=== PATIENT | female | born 1990 | race Caucasian/White ===

== ENCOUNTER 2024-08-13 15:58 | Emergency (ER) | payer BC ==
--- NOTE | 2024-08-13 18:45 | ER ---
Nurse's Notes [facility] Name: Meghan Mitchell Age: 33 yrs Sex: Female : 1990 Arrival Date: 08/13/2024 Time: 15:58 Bed IW9 Private MD: Diagnosis: Presentation: 08/13 16:04 Chief complaint: Patient states: Back pain X 5 days. Reports muscle spasms so bad "it ld1 took me to the floor it hurt so bad.". Coronavirus screen: At this time, the client does not indicate any symptoms associated with coronavirus-19. Ebola Screen: No symptoms or risks identified at this time. Initial Sepsis Screen: Does the patient meet any 2 criteria? No. Patient's initial sepsis screen is negative. Does the patient have a suspected source of infection? No. Patient's initial sepsis screen is negative. Risk Assessment: Do you want to hurt yourself or someone else? Patient reports no desire to harm self or others. Onset of symptoms was August 13, 2024 at 16:05. 16:04 Method Of Arrival: Ambulatory ld1 16:04 Acuity: YEYO 3 ld1 Triage Assessment: 16:05 General: Appears in no apparent distress. uncomfortable, Behavior is calm, cooperative, ld1 appropriate for age. Pain: Complains of pain in low back area Pain does not radiate. Pain currently is 2 out of 10 on a pain scale. at worst was 7 out of 10 on a pain scale. Quality of pain is described as throbbing, Pain began suddenly, Is continuous. EENT: No signs and/or symptoms were reported regarding the EENT system. Neuro: Level of Consciousness is awake, alert, obeys commands, Oriented to person, place, time, situation. Cardiovascular: Capillary refill < 3 seconds Patient's skin is warm and dry. Respiratory: Airway is patent Respiratory effort is even, unlabored. GI: Abdomen is round non-distended. : No signs and/or symptoms were reported regarding the genitourinary system. Derm: No signs and/or symptoms reported regarding the dermatologic system. Musculoskeletal: Range of motion: intact in all extremities. Historical: - Allergies: 16:05 No Known Allergies; ld1 - Home Meds: 16:05 None [Active]; ld1 - PMHx: 16:05 None; ld1 - PSHx: 16:08 None; ld1 - Immunization history:: Adult Immunizations up to date. - Infectious Disease History:: Denies. - Social history:: Smoking status: Patient denies any tobacco usage or history of. Assessment: 18:30 Reassessment: called from lobby, patient was not located and there was no answer. ap3 provider notified. Vital Signs: 16:04 BP 133 / 85; Pulse 80; Resp 18; Temp 97.8(TE); Pulse Ox 100% on R/A; Weight 76.2 kg; ld1 Height 5 ft. 4 in. ; Pain 2/10; 16:04 Body Mass Index 28.84 (76.20 kg, 162.56 cm) ld1 16:04 Pain Scale: Adult ld1 ED Course: 16:01 Patient arrived in ED. im 16:02 Phong Valdivia, [facility] 16:02 Abiel Carmona MD is Attending Physician. dr5 16:05 Triage completed. ld1 16:05 Arm band placed on right wrist. ld1 16:22 Radiology exam delayed due to test not completed at this time. jk Administered Medications: No medications were administered Outcome: 18:45 Patient left the ED. ap3 Signatures: Julee Napoles RN RN ap3 Fareed Schneider Lauren RN RN ld1 Carrie Mendes im Phong Valdivia, DRAGLINE OPERATOR-C DRAGLINE OPERATOR-Cdr5 Corrections: (The following items were deleted from the chart) 16:08 16:05 PSHx: section; ld1 ld1
--- NOTE | 2024-08-13 18:45 | EDPHYS ---
Physician Documentation [facility] Name: Meghan Mitchell Age: 33 yrs Sex: Female : 1990 Arrival Date: 08/13/2024 Time: 15:58 Bed IW9 Private MD: ISABELLE Physician Abiel Carmona HPI: 08/13 18:37 This 33 yrs old Female presents to ER via Ambulatory with complaints of Back dr5 Pain. 18:37 The patient presents with pain that is chronic, with no known mechanism of injury. dr5 Onset: The symptoms/episode began/occurred 5 day(s) ago. Patient is a 33-year-old female with no past medical history coming in with intermittent back spasms for the past 5 days. Patient reports that she has been taking NSAIDs with mild relief. Patient reports that pain comes and goes. Patient denies chest pain, abdominal pain, nausea, vomiting, diarrhea, or dysuria. Patient denies any back pain red flags such as numbness / tingling to lower extremities, magali-rectal numbness, fever, IV drug use, or hx of cancer.. Historical: - Allergies: 16:05 No Known Allergies; ld1 - Home Meds: 16:05 None [Active]; ld1 - PMHx: 16:05 None; ld1 - PSHx: 16:08 None; ld1 - Immunization history:: Adult Immunizations up to date. - Infectious Disease History:: Denies. - Social history:: Smoking status: Patient denies any tobacco usage or history of. ROS: 19:23 Constitutional: as per hpi dr5 Exam: 19:23 Constitutional: This is a well developed, well nourished patient who is awake, alert, dr5 and in no acute distress. Head/Face: Normocephalic, atraumatic. Eyes: Pupils equal round and reactive to light, extra-ocular motions intact. Lids and lashes normal. Conjunctiva and sclera are non-icteric and not injected. Cornea within normal limits. Periorbital areas with no swelling, redness, or edema. Neck: Trachea midline, no thyromegaly or masses palpated, and no cervical lymphadenopathy. Supple, full range of motion without nuchal rigidity, or vertebral point tenderness. No Meningismus. Chest/axilla: Normal chest wall appearance and motion. Nontender with no deformity. No lesions are appreciated. Cardiovascular: Regular rate and rhythm with a normal S1 and S2. Normal PMI, no JVD. No pulse deficits. Respiratory: Lungs have equal breath sounds bilaterally, clear to auscultation. No rales, rhonchi or wheezes noted. No increased work of breathing, no retractions or nasal flaring. Back: No spinal tenderness. No costovertebral tenderness. Full range of motion. Skin: Warm, dry with normal turgor. Normal color with no rashes, no lesions, and no evidence of cellulitis. MS/ Extremity: Pulses equal, no cyanosis. Neurovascular intact. Full, normal range of motion. Vital Signs: 16:04 BP 133 / 85; Pulse 80; Resp 18; Temp 97.8(TE); Pulse Ox 100% on R/A; Weight 76.2 kg; ld1 Height 5 ft. 4 in. ; Pain 2/10; 16:04 Body Mass Index 28.84 (76.20 kg, 162.56 cm) ld1 16:04 Pain Scale: Adult ld1 MDM: 16:03 Medical Screening Exam initiated dr5 19:23 ED course: When out to collect urine so patient could have x-ray in lobby but patient dr5 was nowhere to be found. 25 minutes later I also went my catheter to look for her and she is still not here. Patient left after being seen by ASHLEY and left without treatment complete. I offered patient pain medication in triage room and patient kindly declined.. Administered Medications: No medications were administered Disposition Summary: 08/13/24 18:45 Eloped Notes: Disposition: post triage evaluation and consult ap3 Reason: (see nurse's notes) ap3 Signatures: Dispatcher [employer] Julee White RN RN ap3 Marta Aguilar RN RN ld1 Phong Valdivia, EVENT PLANNER-C EVENT PLANNER-Cdr5 Corrections: (The following items were deleted from the chart) 16:08 16:05 PSHx: section; ld1 ld1
[2024-08-13 19:27] VITALS: BP 133/85; TEMP 97.8; O2SAT 100
== END 2024-08-13 18:45 | disposition left against medical advice (07) ==
LOC: ER 15:58
DX: Z53.21 Procedure and treatment not carried out due to patient leaving prior to being seen by health care provider (principal)
CPT/HCPCS: 99281